=== PATIENT | male | born 1985 | race African-American/Black ===

== ENCOUNTER 2025-01-15 16:02 | Outpatient (CLI) | payer BC | END 2025-01-15 16:03 | disposition home or self-care (01) | LOC: CSHCT 16:02 | PROVIDERS: ATTEND Internal Medicine | DX: R10.9 Unspecified abdominal pain (principal); Z80.51 Family history of malignant neoplasm of kidney; Z84.1 Family history of disorders of kidney and ureter | CPT/HCPCS: 74176 ==